=== PATIENT | female | born 1990 | race Caucasian/White ===

== ENCOUNTER 2021-07-24 17:46 | Emergency (ER) | payer OTHER ==
[~2021-07-24] VITALS: Ht 167.6 cm; Wt 131.4 kg
[2021-07-24 17:47] VITALS: BP 139/77
[2021-07-24] MEDS ORDERED: CONC54TA4 PO (18:17)
[2021-07-24] MEDS ORDERED: NAPR-849 PO (18:17)
[2021-07-24] MEDS ORDERED: LEXA1TAB PO (18:17)
[2021-07-24] MEDS ORDERED: SUMA25TA3 PO (18:17)
[2021-07-24] MEDS ORDERED: KETOROLAC 30 MG/ML 1ML VIAL IM ONE (19:15)
[2021-07-24] MEDS ORDERED: BOOSTRIX/ADACEL VACCINE (DIPHTH/PERTUSS/ACELL/TETANUS) 0.5ML SYR IM ONE (20:20)
[2021-07-24] MEDS ORDERED: LIDOCAINE 2% MDV 20ML VIAL SC ONE (21:35)
[2021-07-24] MEDS ORDERED: BACITRACIN OINTMENT 30GM TUBE TOP ONE (21:35)
== END 2021-07-24 23:06 | disposition home or self-care (01) ==
LOC: M ED 17:46
DX: S61.412A Laceration without foreign body of left hand, initial encounter (principal); W25.XXXA Contact with sharp glass, initial encounter; Y92.018 Other place in single-family (private) house as the place of occurrence of the external cause; Z79.899 Other long term (current) drug therapy
CPT/HCPCS: 12001; 73130; 90471; 90715; 96372; 99282; J1885